=== PATIENT | female | born 1945 | race Two or more races ===

== ENCOUNTER 2022-09-24 07:02 | Day surgery (SDC) | payer MEDICARE, BC ==
[~2022-09-24 07:02] MED LIST: Acetaminophen 325 MG Tab PO PRN; Acetaminophen/Codeine 300-30 MG Tab PO PRN; Cataract Ophth Solution EYELF ONE; Moxifloxacin 0.5% Ophth Soln 3 ML Bottle EYELF ONE; Ondansetron 4 MG/2 ML SDV IVPUSH PRN; Phenylephrine 10% Ophth Soln 5 ML Bot EYELF PRN; Povidone-Iodine 5% Sterile Ophth Soln 30 ML Bottle EYELF ONE; Proparacaine 0.5% Ophth Soln 15 ML Bottle EYELF ONE; Sodium Chloride 0.9% 10 ML Syringe FLUSH PRN; Timolol Maleate 0.5% Ophth Soln 5 ML Bottle EYELF ONE; Tropicamide 1% Ophth Soln 15 ML Bottle EYELF ONE
[2022-09-24] MEDS ORDERED: Proparacaine 0.5% Ophth Soln 15 ML Bottle EYELF ONE (08:24)
[2022-09-24] MEDS ORDERED: Apraclonidine 0.5% Ophth Soln 5 ML Bot EYELF ONE (08:25)
[2022-09-24] MEDS ORDERED: Povidone-Iodine 5% Sterile Ophth Soln 30 ML Bottle EYELF ONE (08:25)
[2022-09-24] MEDS ORDERED: Diclofenac Sodium 0.1% Ophth Soln 5 ML Bottle EYELF ONE (08:26)
[2022-09-24] MEDS ORDERED: Dexamethasone/Neomycin/Polymyxin B Ophth Oint 3.5 GM Tube EYELF ONE (08:26)
[2022-09-24] MEDS ORDERED: Lidocaine 1% 30 ML SDV ONE (08:26)
[2022-09-24] MEDS ORDERED: Vancomycin 500 MG SDV EYELF ONE (08:27)
[2022-09-24] MEDS ORDERED: Balanced Salt Solution Ophth Irrig 500 ML Bottle IOCULAR ONE (08:27)
[2022-09-24] MEDS ORDERED: Chondroitin Sulfate/Hyaluronate Sodium Ophth Inj 0.75 ML Syringe EYELF ONE (08:27)
== END 2022-09-24 09:00 | disposition home or self-care (01) ==
LOC: DL.SDS 07:02
PROVIDERS: ATTEND Ophthalmology
DX: H25.812 Combined forms of age-related cataract, left eye (principal); J40 Bronchitis, not specified as acute or chronic; E78.00 Pure hypercholesterolemia, unspecified; Z98.890 Other specified postprocedural states; Z79.899 Other long term (current) drug therapy; Z91.041 Radiographic dye allergy status
CPT/HCPCS: 00142; A9270-GY; J3370; J3490; V2632

== ENCOUNTER 2022-10-03 08:58 | Day surgery (SDC) | payer MEDICARE, BC ==
[2022-10-03] MEDS ORDERED: Sodium Chloride 0.9% 10 ML Syringe IV ONE (08:59)
[2022-10-03] MEDS ORDERED: Dexamethasone 4 MG/ML SDV IV ONE (08:59)
[2022-10-03] MEDS ORDERED: Midazolam 1 MG/ML 2 ML SDV IV ONE (08:59)
[2022-10-03] MEDS ORDERED: Povidone-Iodine 5% Sterile Ophth Soln 30 ML Bottle EYERT ONE ×2 (09:00→09:42)
[2022-10-03] MEDS ORDERED: Phenylephrine 10% Ophth Soln 5 ML Bot EYERT PRN (09:00)
[2022-10-03] MEDS ORDERED: Tropicamide 1% Ophth Soln 15 ML Bottle EYERT ONE (09:00)
[2022-10-03] MEDS ORDERED: Acetaminophen/Codeine 300-30 MG Tab PO PRN (09:00)
[2022-10-03] MEDS ORDERED: Cataract Ophth Solution EYERT ONE (09:00)
[2022-10-03] MEDS ORDERED: Sodium Chloride 0.9% 10 ML Syringe FLUSH PRN (09:00)
[2022-10-03] MEDS ORDERED: Proparacaine 0.5% Ophth Soln 15 ML Bottle EYERT ONE ×2 (09:00→09:41)
[2022-10-03] MEDS ORDERED: Moxifloxacin 0.5% Ophth Soln 3 ML Bottle EYERT ONE (09:00)
[2022-10-03] MEDS ORDERED: Timolol Maleate 0.5% Ophth Soln 5 ML Bottle EYERT ONE (09:00)
[2022-10-03] MEDS ORDERED: Ondansetron 4 MG/2 ML SDV IVPUSH PRN (09:00)
[2022-10-03] MEDS ORDERED: Acetaminophen 325 MG Tab PO PRN (09:00)
[2022-10-03] MEDS ORDERED: Apraclonidine 0.5% Ophth Soln 5 ML Bot EYERT ONE (09:42)
[2022-10-03] MEDS ORDERED: Diclofenac Sodium 0.1% Ophth Soln 5 ML Bottle EYERT ONE (09:42)
[2022-10-03] MEDS ORDERED: Lidocaine 1% 30 ML SDV ONE (09:43)
[2022-10-03] MEDS ORDERED: Dexamethasone/Neomycin/Polymyxin B Ophth Oint 3.5 GM Tube EYERT ONE (09:43)
[2022-10-03] MEDS ORDERED: Balanced Salt Solution Ophth Irrig 500 ML Bottle IOCULAR ONE (09:44)
[2022-10-03] MEDS ORDERED: Vancomycin 500 MG SDV EYERT ONE (09:44)
[2022-10-03] MEDS ORDERED: Chondroitin Sulfate/Hyaluronate Sodium Ophth Inj 0.75 ML Syringe EYERT ONE (09:44)
== END 2022-10-03 10:17 | disposition home or self-care (01) ==
LOC: DL.SDS 08:58
PROVIDERS: ATTEND Ophthalmology
DX: H26.9 Unspecified cataract (principal); Z98.890 Other specified postprocedural states; Z79.899 Other long term (current) drug therapy; Z91.048 Other nonmedicinal substance allergy status
CPT/HCPCS: 00142; 66984; A9270; J1100; J2250; J3370; V2632; J3490